=== PATIENT | male | born 1975 | race Caucasian/White ===

== ENCOUNTER 2025-07-13 13:29 | Outpatient (CLI) | payer OTHER ==
--- NOTE | 2025-07-13 17:09 | RADIOLOGY REPORT ---
EXAM: MR MRI LOWER EXTREMITY LEFT HISTORY: PAIN IN LEFT KNEE COMPARISON: None TECHNIQUE: Multiplanar, multisequence imaging of the left knee was performed without contrast FINDINGS: MEDIAL COMPARTMENT: Broad area of full-thickness cartilage loss of the medial patellar facet to median ridge with trace underlying subchondral edema. LATERAL COMPARTMENT: Longitudinal vertical type tearing of the posterior horn of the lateral meniscus (series 5, image 20). Broad area of full-thickness cartilage loss of the lateral patellar facet with trace underlying subchondral edema. PATELLOFEMORAL COMPARTMENT: Broad area of full-thickness cartilage loss of the lateral patellar facet with trace underlying subchondral edema. Broad area of full-thickness cartilage loss of the medial patellar facet to median ridge with trace underlying subchondral edema. CRUCIATE LIGAMENTS: Trace amount of fluid along the popliteus tendon sheath.Intact anterior and posterior cruciate ligaments. MEDIAL SUPPORTING STRUCTURES: Slight thickening of the proximal superficial medial collateral ligament which may be sequelae of prior injury. LATERAL SUPPORTING STRUCTURES: Trace amount of fluid along the popliteus tendon sheath.Intact iliotibial band, lateral capsular ligament, fibular collateral ligament, popliteus, and biceps femoris tendons EXTENSOR MECHANISM: Intact JOINT SPACE/FLUID: Small ganglion cysts extruded posteriorly from the posterior joint capsule. BONES: No acute fracture, osseous contusion, or aggressive focal osseous lesion MUSCLES: Normal in signal intensity and morphology NEUROVASCULAR: Unremarkable OTHER: None IMPRESSION: 1. Longitudinal vertical type tearing of the posterior horn of the lateral meniscus. 2. 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 3. Trace amount of fluid along the popliteus tendon sheath.
--- NOTE | 2025-07-13 17:14 | RADIOLOGY REPORT ---
EXAM: MR MRI LOWER EXTREMITY RIGHT HISTORY: PAIN IN R KNEE COMPARISON: MR MRI LOWER EXTREMITY LEFT on DOS: 07/13/25 TECHNIQUE: Multiplanar, multisequence imaging of the right knee was performed without contrast FINDINGS: MEDIAL COMPARTMENT: Thickening of the proximal superficial medial collateral ligament with trace fluid signal which may reflect trace tearing. The medial meniscus is intact. LATERAL COMPARTMENT: Longitudinal horizontal complete tearing of the anterior horn to central body of the lateral meniscus and likely posterior horn extension slight lateral meniscal extrusion. Focal area of full-thickness cartilage loss of the mesial aspect of the lateral tibial plateau and lateral aspect of the lateral tibial plateau with trace underlying subchondral edema. PATELLOFEMORAL COMPARTMENT: Trace areas of subchondral edema with broad area of full-thickness cartilage loss of the lateral patellar facet. CRUCIATE LIGAMENTS: Intact anterior and posterior cruciate ligaments. Small ganglion cysts posterior to the posterior cruciate ligament. MEDIAL SUPPORTING STRUCTURES: Trace amount of edema posterior to the posterior oblique ligament of the posterior medial corner of the knee correlate for sequelae of low-grade sprain/injury. LATERAL SUPPORTING STRUCTURES: Intact iliotibial band, lateral capsular ligament, fibular collateral ligament, popliteus, and biceps femoris tendons EXTENSOR MECHANISM: Intact JOINT SPACE/FLUID: Small knee joint effusion. Suspected intra-articular bodies in the posterior joint recess. BONES: No acute fracture, osseous contusion, or aggressive focal osseous lesion MUSCLES: Normal in signal intensity and morphology NEUROVASCULAR: Unremarkable OTHER: None IMPRESSION: 1. Longitudinal horizontal complete tearing of the anterior horn to central body of the lateral meniscus and likely posterior horn extension slight lateral meniscal extrusion. 2. Focal area of full-thickness cartilage loss of the mesial aspect of the lateral tibial plateau and lateral aspect of the lateral tibial plateau with trace underlying subchondral edema. 3. Trace areas of subchondral edema with broad area of full-thickness cartilage loss of the lateral patellar facet. 4. Small knee joint effusion. 5. Suspected intra-articular bodies in the posterior joint recess. 6. Thickening of the proximal superficial medial collateral ligament with trace fluid signal which may reflect trace tearing. 7. Trace amount of edema posterior to the posterior oblique ligament of the posterior medial corner of the knee correlate for sequelae of low-grade sprain/injury.
== END 2025-07-13 23:59 | disposition home or self-care (01) ==
LOC: MRI02 13:29
PROVIDERS: ATTEND Family Medicine
DX: S83.282A Other tear of lateral meniscus, current injury, left knee, initial encounter (principal); M25.561 Pain in right knee; S83.281A Other tear of lateral meniscus, current injury, right knee, initial encounter; X58.XXXA Exposure to other specified factors, initial encounter; Y93.89 Activity, other specified; Y92.89 Other specified places as the place of occurrence of the external cause; Y99.8 Other external cause status; M25.562 Pain in left knee; M25.461 Effusion, right knee; M25.462 Effusion, left knee
CPT/HCPCS: 73721